=== PATIENT | female | born 1980 | race Caucasian/White ===

== ENCOUNTER 2017-08-06 10:11 | Emergency (ER) | payer MEDICAID ==
[~2017-08-06] VITALS: Ht 165.1 cm; Wt 61.0 kg
[2017-08-06 10:12] VITALS: BP 115/81
[2017-08-06] MEDS ORDERED: LORAZEPAM 1MG TABLET PO ONE (10:45)
== END 2017-08-06 11:00 | disposition home or self-care (01) ==
LOC: ER 10:18
DX: F41.9 Anxiety disorder, unspecified (principal); F32.9 Major depressive disorder, single episode, unspecified; G89.29 Other chronic pain; F17.200 Nicotine dependence, unspecified, uncomplicated
CPT/HCPCS: 99284